=== PATIENT | female | born 1995 | race Caucasian/White ===

== ENCOUNTER 2019-02-20 11:55 | Emergency (ER) | payer SELFPAY ==
--- NOTE | 2019-02-20 14:26 | ULT ---
PELVIC ULTRASOUND: 02/20/19 COMPARISON: None. TECHNIQUE: Transabdominal and endovaginal imaging of the pelvis is performed. Ovaries are interrogated with callejas scale, color flow, Doppler imaging with spectral waveform analysis. HISTORY: patient. Activing bleeding. FINDINGS: The uterus is identified, measuring 12.4 x 6.3 x 7.4 cm. Complex echotexture in the endometrium at th e level of the uterine fundus. In the lower uterine segment, there is a gestational sac, yolk sac and pole. Mcnab-rump length is 0.52 cm, corresponding to a gestational age of 6 weeks, 2 days. The re are heart tones with a rate of 111 beats per minute. There does appear to be heterogeneous echotexture adjacent to the gestational sac compatible with a s ubchorionic hemorrhage. There is free fluid in the cul-de-sac. Left ovary is not appreciated. No obvious masses or fluid in the left adnexa. Right ovary has a normal echotexture measuring 3.2 x 3.4 x 3.6 cm. IMPRESSION: Gestational sac, yolk sac and pole in the lower uterine segment, compatible with active spontan eous . Follow-up ultrasound and serial beta HCGs are recommended. POS: [facility]
== END 2019-02-20 15:52 | disposition home or self-care (01) ==
LOC: ERS 11:55
DX: O20.0 Threatened abortion (principal); O99.411 Diseases of the circulatory system complicating pregnancy, first trimester; I34.1 Nonrheumatic mitral (valve) prolapse; O99.331 Smoking (tobacco) complicating pregnancy, first trimester; F17.210 Nicotine dependence, cigarettes, uncomplicated; O99.511 Diseases of the respiratory system complicating pregnancy, first trimester; J45.909 Unspecified asthma, uncomplicated; Z3A.01 Less than 8 weeks gestation of pregnancy
CPT/HCPCS: 76856

== ENCOUNTER 2019-02-21 11:06 | Emergency (ER) | payer SELFPAY ==
[2019-02-21 11:53] LABS: #Basophils 0.1 thou/uL (0.0-0.2); #Eosinphils 0.2 thou/uL (0.0-0.7); #Lymphocytes 2.2 thou/uL (1.20-3.40); #Monocytes 0.6 thou/uL (0.11-0.59); #Neutrophils 6.1 thou/uL (1.40-6.50); %Basophils 1.1 % (0.0-1.0); %Eosinophils 1.7 % (0.0-10.0); %Lymphocytes 24.1 % (21.0-51.0); %Monocytes 6.2 % (0.0-10.0); %Neutrophils 66.9 % (42.0-75.0); Hemoglobin 12.9 g/dL (12.0-16.0); Mean Corpuscular HGB CONC 34.7 g/dL (32.0-36.0); Mean Corpuscular Hemoglobin 29.8 pg (27.0-31.0); Mean Corpuscular Volume 85.9 fL (78.0-98.0); Platelet Count 274 thou/uL (130-400); RBC Distribution Width 11.3 % (11.5-14.5); Red Blood Cell (RBC) Count 4.34 mill/uL (4.20-5.40); White Blood Cell (WBC) Count 9.2 thou/uL (4.8-10.8)
--- NOTE | 2019-02-21 12:46 | ULT ---
US Pelvic Transvag W Doppler HISTORY: with bleeding. COMPARISON: 02/20/2019 study. FINDINGS: Real-time imaging of the pelvis was obtained both transabdominally as well as with an endov aginal probe. This shows a persistent intrauterine gestational sac and pole in the lower uterine segment. heart rate is 113 bpm. Heterogeneous material is seen within a very thickened endometrial cavity measuring 3 cm in thickness, this is most compatible with clot. The right and left adnexa appear unremarkable. Doppler evaluation with spectral analysis: Normal flow shown to the adnexa. IMPRESSION: Intrauterine gestational sac persists in the lower uterine segment with a heart rat e of 113 bpm. A large amount of clot is seen within the endometrial cavity.
== END 2019-02-21 12:56 | disposition home or self-care (01) ==
LOC: SCSER 11:06
DX: O20.0 Threatened abortion (principal); O99.511 Diseases of the respiratory system complicating pregnancy, first trimester; J45.909 Unspecified asthma, uncomplicated; O99.331 Smoking (tobacco) complicating pregnancy, first trimester; F17.210 Nicotine dependence, cigarettes, uncomplicated; O99.411 Diseases of the circulatory system complicating pregnancy, first trimester; I34.1 Nonrheumatic mitral (valve) prolapse; Z3A.01 Less than 8 weeks gestation of pregnancy
CPT/HCPCS: 36415; 76856; 84702; 85025; 86900; 86901

== ENCOUNTER 2019-02-23 12:42 | Emergency (ER) | payer SELFPAY ==
--- NOTE | 2019-02-23 14:30 | ULT ---
Exam: Pelvic ultrasound HISTORY: Evaluate for retained products of conception. Follow-up evaluation. COMPARISON: 02/21/2019 TECHNIQUE: Multiple grayscale and color Doppler images were obtained in a transabdominal and transvag inal pelvic ultrasound. Spectral analysis of the Doppler waveforms of the ovaries were performed. FINDINGS: CERVIX: Nabothian cyst formation is demonstrated. UTERUS: Again noted is a fluid collection within the lower uterine segment within the endometrial can al which again contains a pole. Cardiac Doppler does demonstrate heart tones with a heart rate of 116 bpm. The crown-rump length measures 0.75 cm which corresponds to gestational age by ultrasound of 6 weeks and 5 days. Within the endometrial canal proximal to the level of the gestational sac, there is thickening of the endometrium with persistent area of heterogeneity. The endometrium in this region measures 2.4 cm. Subjectively, this area does not appear significantly changed from the prior study; although, the end ometrial thickness on the prior study measured approximately 3 cm. This is again suggestive of blood products. Minimal free fluid is present. RIGHT OVARY: Normal flow, without focal mass. LEFT OVARY: Normal flow, without focal mass. IMPRESSION: Intrauterine gestation with heart tones documented is again located in the lower uterine segmen t. Proximal to this region in the endometrial canal, a large amount of heterogeneous material is again visualized likely related to hemorrhage not significantly changed from prior exam.
[2019-02-25 16:44] LABS: Chlamydia by PCR Not Detected (NotDetected); GC by PCR Not Detected (NotDetected)
== END 2019-02-23 15:08 | disposition home or self-care (01) ==
LOC: SCSER 12:42
DX: O20.0 Threatened abortion (principal); Z3A.01 Less than 8 weeks gestation of pregnancy
CPT/HCPCS: 36415; 76856; 84702; 87480; 87491; 87510; 87591; 87660

== ENCOUNTER 2019-03-04 20:18 | Observation (INO) | payer SELFPAY ==
[2019-03-04 21:43] LABS: #Basophils 0.1 thou/uL (0.0-0.2); #Eosinphils 0.2 thou/uL (0.0-0.7); #Lymphocytes 3.4 thou/uL (1.20-3.40); #Monocytes 0.6 thou/uL (0.11-0.59); #Neutrophils 6.5 thou/uL (1.40-6.50); %Basophils 0.7 % (0.0-1.0); %Eosinophils 2.3 % (0.0-10.0); %Lymphocytes 31.6 % (21.0-51.0); %Monocytes 5.2 % (0.0-10.0); %Neutrophils 60.2 % (42.0-75.0); Hemoglobin 13.2 g/dL (12.0-16.0); Mean Corpuscular HGB CONC 35.5 g/dL (32.0-36.0); Mean Corpuscular Volume 87.5 fL (78.0-98.0); Mean Platelet Volume 6.9 fL (7.4-10.4); Platelet Count 312 thou/uL (130-400); RBC Distribution Width 11.3 % (11.5-14.5); Red Blood Cell (RBC) Count 4.26 mill/uL (4.20-5.40); White Blood Cell (WBC) Count 10.7 thou/uL (4.8-10.8)
[2019-03-04 23:24] LABS: Bacteria/HPF 1+ HPF (None Seen); Bilirubin Negative (Negative); Blood, Urine 3+ (Negative); Clarity Clear (Clear); Glucose, Urine (Dipstick) Normal (Negative); Leukocyte Negative Leu/uL (Negative); Nitrite Negative (Negative); Protein, Urine (Dipstick) 20 mg/dL (Neg-Trace); RBC/HPF Greater than 50 HPF (0-3)
--- NOTE | 2019-03-04 23:49 | ULT ---
Exam: Pelvic ultrasound COMPARISON: 02/23/2019, 02/21/2019, 02/20/2019 TECHNIQUE: Endovaginal imaging of the pelvis is performed. Ovaries are interrogated with grayscale im aging. FINDINGS: Redemonstration of mixed echogenicity within the endometrium at the level of the uterine fundus. This collection measures 5.7 x 1.8 x 3.8 cm. In the lower uterine segment, there is evidence of a gestational sac, yolk sac and pole. Paton-rump length is 1.80 cm corresponding to gestational a ge of 8 weeks 2 days. There is interval growth. Previously, the gestational age was 6 weeks 3 days. heart tones are present, with a rate of 166 bpm. Left ovary is not appreciated. Right ovary has a normal echotexture measuring 1.8 x 5.3 x 2.3 cm IMPRESSION: Redemonstration of a that is at the level of the lower uterine segment. There has been inte rval growth. The patient has a history of section. The possibility of a ectopic at the level of the section scar is raised. [facility] consultation is recommended. Results of study discussed with Dr. Kay 03/04/2019 at 11:46 PM Code CR Transcribed Date/Time: 03/04/2019 11:51 PM
[2019-03-05] MEDS ORDERED: hydrALAZINE 20 MG/ML VIAL SLOW IVP PRN (07:43)
[2019-03-05] MEDS ORDERED: Ondansetron PF 4 MG/2 ML Vial IVP PRN (07:43)
[2019-03-05] MEDS ORDERED: Promethazine HCl 25 MG/ML VIAL IM PRN (07:43)
[2019-03-05] MEDS ORDERED: Lactated Ringer's 1,000 ML IV SCH (07:45)
[2019-03-05 08:17] LABS: Hemoglobin 12.5 g/dL (12.0-16.0); Mean Corpuscular HGB CONC 33.9 g/dL (32.0-36.0); Mean Corpuscular Hemoglobin 29.3 pg (27.0-31.0); Mean Corpuscular Volume 86.5 fL (78.0-98.0); Mean Platelet Volume 6.7 fL (7.4-10.4); Platelet Count 314 thou/uL (130-400); RBC Distribution Width 11.3 % (11.5-14.5); Red Blood Cell (RBC) Count 4.27 mill/uL (4.20-5.40); White Blood Cell (WBC) Count 9.7 thou/uL (4.8-10.8)
[2019-03-05 08:59] LABS: HBSAg Index 0.29 S/CO (0-0.99); HIV (1/2) Antibody/Antigen Non-Reactive (NonReactive); HIV 1/2 INDEX 0.09 S/CO (<1.00); Hep B Surf Ag Non-Reactive S/CO (NonReactive); Syphilis Antibody Nonreactive (Nonreactive); Syphilis Antibody Index 0.03 S/CO (<1.00 Non-Reactive)
[2019-03-05 09:45] VITALS: BMI 30.3
--- NOTE | 2019-03-05 13:59 | PDOC.EVN ---
Event Note - Event Note Event Note: Patient seen this AM at bedside. I reviewed with her the concerns (lower uterine with FHTs), due to her prior CS Hx x3. MRI has been done...awaiting results.
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
--- NOTE | 2019-03-05 15:04 | MRI ---
MRI PELVIS WITHOUT CONTRAST: Date: 03/05/19 COMPARISON: Pelvic ultrasound dated 03/04/19. HISTORY: Possible ectopic within scar. TECHNIQUE: Multiplanar, multisequence MR images were obtained of the pelvis without contrast. FINDINGS: A scar is seen in the subcutaneous fat in the lower abdominal wall. There is fluid within the endomet rial canal demonstrating high T1 and low T2 signal consistent with blood products. This signal is see n throughout the uterus, which is mildly enlarged. In the lower uterine segment, there is a well circ umscribed focus of high T2 signal measuring approximately 2.4 cm in greatest dimension. This contains an internal structure which may represent a pole. This is in the very lower uterine segment, b ut appears to be within the lower uterine segment rather the cervix. The cervix appears separate from this and measures 2.6 cm in length. This is in the posterior aspect of the uterus rather t [place] in the anterior aspect of the uterus and there is a small amount of fluid seen within the endomet rial canal also adjacent to this likely gestational sac and within the cervical canal. No pelvic adenopathy is seen. The ovaries are normal in size and appearance and demonstrate normal fo llicles. IMPRESSION: The patient appears to have a very low intrauterine , which is immediately adjacent to the c ervix, but not within the cervix. This is in the wall opposite of where the Caesarean secti on scar would be located. POS: [facility]
--- NOTE | 2019-03-05 16:29 | PDOC.EVN ---
Event Note - Event Note Event Note: OBGYN: Per radiology (phone call, Appelt): The gestational sac is in the CHANDLER (which sono found)...but it appears that implantation in the POST wall and NOT the anterior over the scar. He did not suspect scar ectopic. As the pateint has HX of VB...this may be an impending miscarriage over cervical ectopic as they are more rare. We will confirm RH type (rhogam if negative) and likely do expectant outpatient follow up
--- NOTE | 2019-03-05 17:15 | PDOC.EVN ---
Event Note - Event Note Event Note: @1715: Patient seen at bedside; Stable. No VB MRI discussed with her. See full dictation
[2019-03-05 17:28] VITALS: BP 99/50; TEMP 98.2
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
== END 2019-03-05 18:07 | disposition home or self-care (01) ==
LOC: ERS 20:18 → 3SW 03-05 07:55
PROVIDERS: ADMIT Obstetrics & Gynecology; ATTEND Obstetrics & Gynecology
DX: O20.0 Threatened abortion (principal); O99.511 Diseases of the respiratory system complicating pregnancy, first trimester; J45.909 Unspecified asthma, uncomplicated; O99.331 Smoking (tobacco) complicating pregnancy, first trimester; F17.210 Nicotine dependence, cigarettes, uncomplicated
CPT/HCPCS: 36415; 72195; 76856; 81003; 84702; 85025; 85027; 86762; 86780; 86850; 86900; 86901; 87340; 87389; 96360; 96361; G0378

== ENCOUNTER 2019-03-22 20:19 | Inpatient (IN) | payer SELFPAY ==
[2019-03-22 21:05] LABS: Bilirubin Negative (Negative); Blood, Urine Large (Negative); Clarity Hazy (Clear); Glucose, Urine (Dipstick) Negative (Negative); Leukocyte Trace (Negative); Nitrite Negative (Negative); Protein, Urine (Dipstick) Negative (Neg-Trace)
[2019-03-22 21:07] LABS: WBC/HPF 0-3 HPF (0-3)
[2019-03-22 21:08] LABS: Bacteria/HPF Rare-Few HPF (None Seen)
[2019-03-22] MEDS ORDERED: Acetaminophen 500 MG TAB ONE ×2 (21:09→23:51)
[2019-03-22 21:11] LABS: #Eosinphils 0.1 thou/uL (0.0-0.7); #Lymphocytes 1.1 thou/uL (1.20-3.40); #Monocytes 0.3 thou/uL (0.11-0.59); #Neutrophils 15.4 thou/uL (1.40-6.50); %Basophils 0.3 % (0.0-1.0); %Eosinophils 0.3 % (0.0-10.0); %Lymphocytes 6.3 % (21.0-51.0); %Monocytes 1.8 % (0.0-10.0); %Neutrophils 91.4 % (42.0-75.0); Hemoglobin 13.7 g/dL (12.0-16.0); Mean Corpuscular HGB CONC 35.2 g/dL (32.0-36.0); Mean Corpuscular Hemoglobin 30.3 pg (27.0-31.0); Mean Platelet Volume 6.2 fL (7.4-10.4); Platelet Count 232 thou/uL (130-400); RBC Distribution Width 11.3 % (11.5-14.5); Red Blood Cell (RBC) Count 4.53 mill/uL (4.20-5.40); White Blood Cell (WBC) Count 16.8 thou/uL (4.8-10.8)
[2019-03-22 21:19] LABS: ALT (SGPT) 16 U/L (8-55); AST (SGOT) 16 U/L (5-34); Albumin 4.1 g/dL (3.5-5.0); Alkaline Phosphatase 74 U/L (40-150); Anion Gap 14 mmol/L (10-20); BUN (Urea Nitrogen) 7 mg/dL (7.0-18.7); Bilirubin, Total 0.3 mg/dL (0.2-1.2); Calc. Creatinine Clearance 0 mL/min (70-130); Calcium 9.3 mg/dL (7.8-10.44); Carbon Dioxide 20 mmol/L (22-29); Chloride 103 mmol/L (98-107); Estimated GFR-MDRD Greater than 90; Globulin 3.1 g/dL (2.4-3.5); Glucose 112 mg/dL (70-105); Potassium 3.4 mmol/L (3.5-5.1); Protein, Total 7.2 g/dL (6.0-8.3); Sodium 134 mmol/L (136-145)
[2019-03-22] MEDS ORDERED: metroNIDAZOLE 500 MG/100 ML BAG ONE (21:30)
--- NOTE | 2019-03-22 23:38 | ULT ---
PELVIC ULTRASOUND: 03/22/19 Transabdominal ultrasound performed. INDICATIONS: Threatened . Sepsis. There is a gestational sac and pole identified. This gestational sac is abnormally located in t he lower uterine segment near the internal cervical os. The pole has crown-rump length indicati ng a 10 week, 5 day gestational age. No evidence of cardiac activity identified. Comparison made to the pelvis ultrasound dated 03/04/19. That exam also revealed a gestational sac in t he lower uterine segment; however, there were heart tones demonstrated at that time. IMPRESSION: Gestational sac containing a pole is abnormally located in the lower uterine segment near the i nternal os. There appears to be demise with no heart tones identified. POS: [facility]
[2019-03-22] MEDS ORDERED: Sodium Chloride 0.9% 1,000 ML IV SCH (23:45)
[2019-03-22] MEDS ORDERED: Morphine 4 MG/ML VIAL ONE (23:51)
[2019-03-22] MEDS ORDERED: cefTRIAXone\\ROCEPHIN 2 GM in Sodium Chloride 0.9% 100 ML IVPB SCH (23:59)
[2019-03-22] MEDS ORDERED: Morphine 4 MG/ML VIAL SLOW IVP SCH (23:59)
[2019-03-22] MEDS ORDERED: Acetaminophen 500 MG TAB PO SCH (23:59)
[2019-03-23 00:05] LABS: Bacteria/HPF None Seen HPF (None Seen); Bilirubin Negative (Negative); Blood, Urine 2+ (Negative); Clarity Clear (Clear); Glucose, Urine (Dipstick) Normal (Negative); Leukocyte 250 Leu/uL (Negative); Nitrite Negative (Negative); Protein, Urine (Dipstick) Negative (Neg-Trace); RBC/HPF 0-3 HPF (0-3); Squamous Epithelial 0-3 HPF (0-3); Urobilinogen Normal mg/dL (Less than 2)
[2019-03-23] MEDS ORDERED: Ibuprofen 800 MG TAB ONE (00:11)
[2019-03-23] MEDS ORDERED: cefTRIAXone\\ROCEPHIN 2 GM VIAL ONE (00:11)
[2019-03-23] MEDS ORDERED: Fentanyl 100 MCG/2 ML VIAL ONE ×3 (00:25→19:46)
[2019-03-23] MEDS ORDERED: Ondansetron PF 4 MG/2 ML Vial IVP PRN (00:27)
[2019-03-23] MEDS ORDERED: hydrALAZINE 20 MG/ML VIAL SLOW IVP PRN (00:27)
[2019-03-23] MEDS ORDERED: Misoprostol 200 MCG TAB PO SCH (00:30)
[2019-03-23] MEDS ORDERED: Lactated Ringer's 1,000 ML IV SCH ×3 (00:30→23:00)
[2019-03-23] MEDS ORDERED: Morphine 4 MG/ML VIAL SLOW IVP SCH (00:30)
[2019-03-23] MEDS ORDERED: Fentanyl 100 MCG/2 ML VIAL SLOW IVP SCH (00:45)
[2019-03-23 01:05] LABS: Lactic Acid 2.2 mmol/L (0.5-2.2)
[2019-03-23 01:08] LABS: Mean Corpuscular HGB CONC 34.9 g/dL (32.0-36.0); Mean Corpuscular Hemoglobin 30.3 pg (27.0-31.0); Mean Corpuscular Volume 86.8 fL (78.0-98.0); Mean Platelet Volume 6.8 fL (7.4-10.4); Platelet Count 209 thou/uL (130-400); RBC Distribution Width 11.4 % (11.5-14.5); White Blood Cell (WBC) Count 13.6 thou/uL (4.8-10.8)
[2019-03-23] MEDS: Butorphanol Tartrate 1 MG/ML VIAL SLOW IVP PRN ×4 (01:44→13:31)
--- NOTE | 2019-03-23 02:16 | HP ---
CHIEF COMPLAINT: Abdominal pain and not feeling well. HISTORY OF PRESENT ILLNESS: The patient is a 23-year-old G4, P3 female, well known to the emergency room with this who is re-presenting with overall malaise and chills. Upon arrival, the patient was noted to have a fever and elevated white count and was transferred from [facility] to us with concerns about threatened AB, endomyometritis. Upon arrival, the patient was noted to have a missed AB, confirmed by ultrasound with no evidence of heart beat. Fetus measuring about 10 weeks gestation. The patient reports she has been having abdominal pain today, midline and to the patient's left. She reports she continues to have bleeding over the last month and she has been bleeding about one pad a day. The patient states that she has a very strong desire to see this baby intact at time of delivery. PAST MEDICAL HISTORY: Asthma, mitral valve prolapse, heart murmur. 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 SOCIAL HISTORY: Reports a half pack per day of smoking. Denies drug or alcohol use. ALLERGIES: NO KNOWN DRUG ALLERGIES. MEDICATIONS: None. PHYSICAL EXAMINATION: VITAL SIGNS: Blood pressure one teens over 60s, pulse of 124, respiratory rate 16, temperature 102.2, saturating 99% on room air. GENERAL: She appears to be in some distress and uncomfortable. She is otherwise alert and oriented, cooperative and pleasant to interact with. HEENT: Head is normocephalic, atraumatic. LUNGS: Clear to auscultation bilaterally. HEART: Tachycardic with a regular rhythm. ABDOMEN: Soft with some rebound and tenderness, worse suprapubically into the patient's left. PELVIC: Cervix is having some increased bleeding of probably about 50 mL of blood, 25-50 mL of blood in the vault, dark. Cervix is exquisitely tender. LABORATORY DATA: Ultrasound confirms nonviable 10-week . White count is 13.6, hemoglobin is 13, hematocrit 37.4, platelets 209,000. Lactic acid 2.2. Sodium 134, potassium 3.4, chloride 103, BUN 7, creatinine 0.68, AST 16, ALT 16. ASSESSMENT AND PLAN: The patient is a 23-year-old female with what appears to be a missed AB with infection, with suspected endomyometritis at risk for sepsis. The patient has been counseled for D and C versus medically-induced passage of the fetus. The patient has expressed again very strong desires to want to see this baby with her eyes. I have discussed that this may delay her care and that if she were to continue to worsen, I would strongly recommend a D and C. The patient has expressed understanding and the plan at this time is to proceed with medical induction of labor for passage of this 10-week fetus at initial dose of 600 mcg and 400 mcg every 3 hours by mouth. The patient appears that she may be getting ready to go into labor on her own and hopefully will be delivering this tonight. The patient is being given a warning that should she show signs of worsening infection that we would be proceeding with D and C with priority to keep her safe as possible. We will continue antibiotics, Rocephin and Flagyl at this time. The patient will stay on Labor and Delivery. Job ID: [id number]
[2019-03-23] MEDS ORDERED: Meperidine HCl/PF 25 MG/ML VIAL ONE (03:11)
[2019-03-23] MEDS ORDERED: Promethazine HCl 25 MG/ML VIAL IM PRN ×3 (03:14→20:21)
[2019-03-23] MEDS: Misoprostol 200 MCG TAB PO SCH ×4 (05:45→22:56)
[2019-03-23] MEDS: metroNIDAZOLE 500 MG in Premix Bag 1 BAG IVPB SCH ×2 (06:44→22:57)
--- NOTE | 2019-03-23 08:54 | PDOC.EVN ---
Event Note - Event Note Event Note: PT having pain with contractions. PT has expressed she is considering a D&C vital signs stable 90s/50s p 90s sat 98-100% RA. RR20 temp 99.4 at rest in between contractions cervix ballooning with poc palpable in cervical canal a/p 10wk missed abortions with endomyometritis in rocephin and flagyl stable no evidence of worsening illness on cytotec 400mcg q3hrs until delivery anticipate delivery soon. Dr Oliveira is the on coming MD. PT counselled delivery appear soon. If she desires D&C to contact nurse Nel for pain control
[2019-03-23] MEDS ORDERED: Sodium Chloride 0.9% 1,000 ML IV SCH (09:00)
--- NOTE | 2019-03-23 09:32 | PDOC.EVN ---
Event Note - Event Note Event Note: Received check out from Dr. Dunham. !0 week demise now s/p 3rd dose of oral Cytotec, on Rocephin and Flagyl. Expect delivery this AM. Consent for D&C on chart.
[2019-03-23] MEDS ORDERED: PHENYLEPHRINE-NS 100 MCG/ML 10 ML SYRINGE ONE (14:08)
[2019-03-23] MEDS ORDERED: PROPOFOL 200 MG/20 ML VIAL ONE (14:08)
[2019-03-23] MEDS ORDERED: Lidocaine 1% PF 5 ML VIAL ONE (14:08)
[2019-03-23] MEDS ORDERED: Ondansetron PF 4 MG/2 ML Vial ONE (14:08)
[2019-03-23] MEDS ORDERED: Dexamethasone 20 MG/5 ML VIAL ONE (14:08)
[2019-03-23] MEDS ORDERED: Ketorolac Tromethamine 30 MG/ML VIAL ONE (14:08)
--- NOTE | 2019-03-23 15:07 | PDOC.EVN ---
Event Note - Event Note Event Note: SVE remains unchaged despite multiple dose of Cytotec. Xz=248.4. Prelim BC x 2 shows gram + cocci. Will DC Rocephin and start Amp/Gent and cont. Flagyl and preceed with D&C. Consent is on chart.
[2019-03-23] MEDS: Gentamicin Sulfate 340 MG in Sodium Chloride 0.9% 100 ML IVPB SCH (15:09)
[2019-03-23] MEDS ORDERED: Misoprostol 200 MCG TAB ONE (18:55)
[2019-03-23] MEDS ORDERED: Oxytocin 10 UNITS/ML VIAL ONE (18:55)
[2019-03-23] MEDS ORDERED: Midazolam HCl 2 mg/2 ml Vial ONE (19:46)
[2019-03-23] MEDS ORDERED: Promethazine HCl 25 MG/ML VIAL SLOW IVP PRN ×2 (20:20→20:21)
[2019-03-23] MEDS ORDERED: PACU-Morphine 4MG/ML VIAL SLOW IVP PRN (20:20)
[2019-03-23] MEDS ORDERED: HYDROmorphone 2 MG/ML VIAL SLOW IVP PRN (20:20)
[2019-03-23] MEDS ORDERED: Ondansetron HCl/PF 4 MG/2 ML Vial IVP PRN ×2 (20:20→20:21)
[2019-03-23] MEDS ORDERED: Meperidine HCl/PF 25 MG/ML VIAL SLOW IVP PRN (20:21)
[2019-03-23] MEDS ORDERED: Acetaminophen/Codeine 30-300mg Tablet PO PRN (21:39)
[2019-03-23 21:51] LABS: #Lymphocytes 0.5 thou/uL (1.20-3.40); #Monocytes 0.2 thou/uL (0.11-0.59); #Neutrophils 9.8 thou/uL (1.40-6.50); %Basophils 0.3 % (0.0-1.0); %Eosinophils 0.3 % (0.0-10.0); %Lymphocytes 4.8 % (21.0-51.0); %Monocytes 2.2 % (0.0-10.0); %Neutrophils 92.5 % (42.0-75.0); Hemoglobin 8.7 g/dL (12.0-16.0); Mean Corpuscular HGB CONC 35.3 g/dL (32.0-36.0); Mean Corpuscular Hemoglobin 30.8 pg (27.0-31.0); Mean Corpuscular Volume 87.2 fL (78.0-98.0); Platelet Count 151 thou/uL (130-400); RBC Distribution Width 11.3 % (11.5-14.5); Red Blood Cell (RBC) Count 2.81 mill/uL (4.20-5.40); White Blood Cell (WBC) Count 10.6 thou/uL (4.8-10.8)
[2019-03-23] MEDS: Clindamycin/D5W 900 MG in Premix Bag 1 BAG IVPB SCH (23:16)
[2019-03-23] MEDS: Acetaminophen/Codeine 30-300mg Tablet PO PRN (23:17)
[2019-03-23] MEDS: Ampicillin 2 GM in Sodium Chloride 0.9% 100 ML IVPB SCH (23:17)
[2019-03-24] MEDS ORDERED: Lactated Ringer's 1,000 ML IV SCH (00:15)
--- NOTE | 2019-03-24 00:22 | PDOC.EVN ---
Event Note - Event Note Event Note: Reassessed patient. Blood pressure has slightly improved with 1.5 L bolus. Map of 67. Patient sitting up in bed and eating pudding. Denies weakness/dizziness in bed but noted these symptoms when got up to bathroom. Denies N/V. Patient is pale in appearance. Minimal blood in pad. Ordered another 1 L bolus to follow to ensure 30cc/kg fluid resuscitation. Only IV access through R thumb and patient was reportedly a hard stick. May consider midline vs central line if current IV access not sufficient. Will continue to monitor frequent BP checks to ensure improvement. If does not respond appropriately to adequate fluid resuscitation will need to consider pressors. Continue IV antibiotics. Pending am CBC and final blood culture results. Addendum - Attending - Attending Attestation Date/Time: 03/24/19 8255 I personally evaluated the patient and discussed the management with Dr. Vasquez. I agree with the Assessment and Plan documented above.
--- NOTE | 2019-03-24 02:38 | PDOC.EVN ---
Event Note - Event Note Event Note: BPs remain low despite fluid boluses to 3 liters. Remains on triple ABX coverage. Will consult [facility] for evalution and consideration of pressor agent. To CCU for central line and evaluation there.
--- NOTE | 2019-03-24 02:46 | OP ---
DATE OF PROCEDURE: 03/23/2019 PREOPERATIVE DIAGNOSES: 1. Incomplete . 2. Sepsis. POSTOPERATIVE DIAGNOSES: 1. Incomplete . 2. Sepsis. PROCEDURE PERFORMED: Suction curettage of the uterus. ANESTHESIA: IV sedation with LMA. FINDINGS: 1. Cervix widely opened with products extruding. 2. Large amount of products of conception along with fetus removed with ring forceps and suction curettage. COMPLICATIONS: None. ESTIMATED BLOOD LOSS: 100 mL. TECHNIQUE IN DETAIL: The patient was taken to the operating room after informed consent was obtained and was put to sleep using IV sedation with LMA. The patient was prepped and draped in the usual sterile fashion in the dorsal lithotomy position using the [employer]-cane stirrups. The bladder was drained of small amount of clear urine. Bimanual exam showed the uterus to be approximately 10 weeks in size. Upon placement of the weighted speculum, it could be seen that there was tissue extending from the cervix. The anterior aspect was grasped with a ring forceps and a second ring forcep was used to remove tissue that included placental type tissue, as well as tissue. This was submitted for pathological analysis. The suction curette was then placed in the uterine cavity and a large amount of tissue was obtained. A sharp curette was then passed through all quadrants of the uterus and no remaining placental fragments were obtained. Pitocin infusion was begun after suction curettage was begun. At the end of the procedure, the sponge and instrument counts were correct. The patient tolerated the procedure well and was taken to recovery room in good condition. Job ID: [id number]
[2019-03-24 03:01] LABS: #Lymphocytes 0.4 thou/uL (1.20-3.40); #Monocytes 0.1 thou/uL (0.11-0.59); #Neutrophils 8.8 thou/uL (1.40-6.50); %Basophils 0.1 % (0.0-1.0); %Eosinophils 0.1 % (0.0-10.0); %Lymphocytes 4.7 % (21.0-51.0); %Monocytes 1.2 % (0.0-10.0); Hemoglobin 8.3 g/dL (12.0-16.0); Mean Corpuscular HGB CONC 35.9 g/dL (32.0-36.0); Mean Corpuscular Hemoglobin 31.4 pg (27.0-31.0); Mean Corpuscular Volume 87.5 fL (78.0-98.0); Mean Platelet Volume 7.3 fL (7.4-10.4); Platelet Count 142 thou/uL (130-400); RBC Distribution Width 11.3 % (11.5-14.5); Red Blood Cell (RBC) Count 2.63 mill/uL (4.20-5.40); White Blood Cell (WBC) Count 9.4 thou/uL (4.8-10.8)
[2019-03-24 03:08] LABS: INR-International Normal Ratio 1.3; PTT 37.8 SEC (22.9-36.1); Prothrombin Time 16.1 SEC (12.0-14.7)
[2019-03-24 03:18] LABS: Lactic Acid 1.3 mmol/L (0.5-2.2)
[2019-03-24 03:24] LABS: ALT (SGPT) 9 U/L (8-55); AST (SGOT) 14 U/L (5-34); Albumin 2.7 g/dL (3.5-5.0); Alkaline Phosphatase 48 U/L (40-150); Anion Gap 11 mmol/L (10-20); BUN (Urea Nitrogen) 8 mg/dL (7.0-18.7); Bilirubin, Total 0.3 mg/dL (0.2-1.2); Calc. Creatinine Clearance 184 mL/min (70-130); Calcium 8.1 mg/dL (7.8-10.44); Carbon Dioxide 18 mmol/L (22-29); Chloride 108 mmol/L (98-107); Estimated GFR-MDRD Greater than 90; Globulin 2.2 g/dL (2.4-3.5); Glucose 197 mg/dL (70-105); Magnesium 1.4 mg/dL (1.6-2.6); Potassium 3.7 mmol/L (3.5-5.1); Protein, Total 4.9 g/dL (6.0-8.3); Sodium 133 mmol/L (136-145)
[2019-03-24 04:14] VITALS: BMI 32.3
[2019-03-24] MEDS ORDERED: Magnesium 2 GM/50 ML 2 GM in Premix Bag 1 BAG IVPB SCH (04:15)
--- NOTE | 2019-03-24 04:49 | PDOC.HOSPP ---
- Subjective Subjective: Patient seen and examined for Septic shock. Admitted 03/23 for missed with possible endometritis. Blood cultures 2/2 positive for GP rods. Feels gen weak. Overall feels somewhat better since admission. No N/V/D/rash . No other complaints. - Objective Vital Signs & Weight: Vital Signs (12 hours) Temp Pulse Resp BP Pulse Ox 03/24/19 02:31 81/42 L 03/24/19 02:02 78/42 L 03/24/19 01:48 76 85/49 L 98 03/24/19 00:42 80/44 L 03/24/19 00:04 87/52 L 03/23/19 23:42 78 88/48 L 98 03/23/19 23:18 88/53 L 03/23/19 22:40 98.8 F 86 18 85/43 L 96 Weight Weight 194 lb 0.108 oz Result Diagrams: 03/24/19 02:55 03/24/19 02:55 Additional Labs: Laboratory Tests 03/24/19 03/24/19 03/24/19 02:55 02:55 02:55 PT INR APTT Lactic Acid 1.3 Magnesium 1.4 L Cortisol 1.90 03/24/19 02:55 PT 16.1 H INR 1.3 APTT 37.8 H Lactic Acid Magnesium Cortisol Microbiology 03/22/19 21:26 Cervix Gram Stain - Final 03/22/19 21:26 Cervix Genital Culture - Preliminary 03/22/19 21:00 Venous blood - Right Arm Blood Culture - Preliminary Gram Positive Daquan 03/22/19 20:55 Venous blood - Left Arm Blood Culture - Preliminary Gram Positive Daquan 03/22/19 20:55 Urine voided Urine Culture - Preliminary NO GROWTH AT 12 HOURS EKG Reviewed by me: Yes (Tele SR) ROS - Review of Systems All systems: All other ROS were reviewed and found negative. - Medication Medications: Active Medications Generic Name Dose Route Start Last Admin Trade Name Freq PRN Reason Stop Dose Admin Gentamicin Sulfate 340 mg/ 108.5 mls @ 108.5 mls/hr 03/23/19 15:00 03/23/19 15:09 Sodium Chloride IVPB 108.5 mls Q24HR ANASTACIA Administration Ampicillin Sodium 2 gm/ Sodium 100 mls @ 200 mls/hr 03/23/19 23:59 03/23/19 23:17 Chloride IVPB 100 mls Q6HR ANASTACIA Administration Clindamycin Phosphate/Dextrose 50 mls @ 100 mls/hr 03/23/19 22:00 03/23/19 23 :16 900 mg/ Device IVPB 50 mls Q8HR ANASTACIA Administration Promethazine HCl 12.5 mg 03/23/19 03:14 03/23/19 03:29 Phenergan IM 12.5 mg Q2H PRN Administration Nausea/Vomiting - Exam NAD Heart: RRR, no gallops, no rubs, normal peripheral pulses (low volume) Respiratory: CTAB, no wheezes, no rales, no ronchi Gastrointestinal: soft, non-distended, normal bowel sounds (mild gen tend) Extremities: no cyanosis, no clubbing, no edema Skin: normal turgor, no rashes Psychiatric: A&O x 3 Hosp A/P (1) Septic shock due to Gram positive bacteria Code(s): A41.89 - OTHER SPECIFIED SEPSIS; R65.21 - SEVERE SEPSIS WITH SEPTIC SHOCK Status: Acute (2) Bacteremia due to Gram-positive bacteria Code(s): R78.81 - BACTEREMIA Status: Acute (3) Hypotension Status: Acute (4) Hypomagnesemia Code(s): E83.42 - HYPOMAGNESEMIA Status: Acute (5) Coagulopathy Status: Acute - Plan plan discussed w/ family, DVT proph w/SCDs Cont Ampicillin/Gent/Clindamycin Increase LR to 150 ml/hr Central line Pressors PRN Check D-dimer and Fibrinogen AM labs Replace Magnessium Stress dose steroids if persistent hypotension. Thank you for this consultation. Will follow.
[2019-03-24] MEDS ORDERED: SYSTANE 3.5 GM TUBE EA EYE PRN (04:56)
[2019-03-24] MEDS ORDERED: Norepinephrine 8 MG/0.9% NS 250 ML IVPB PRN (04:56)
[2019-03-24] MEDS ORDERED: Norepinephrine 8 MG in Dextrose 5% in Water 242 ML IVPB PRN (04:59)
[2019-03-24] MEDS ORDERED: Acetaminophen 325 MG TAB PO PRN (05:00)
[2019-03-24] MEDS ORDERED: Bisacodyl 10 MG SUPP PR PRN (05:00)
[2019-03-24] MEDS ORDERED: Senokot S 8.6-50 MG TAB PO PRN (05:00)
[2019-03-24] MEDS: Lactated Ringer's 1,000 ML IV SCH ×3 (05:07→19:23)
[2019-03-24] MEDS: Clindamycin/D5W 900 MG in Premix Bag 1 BAG IVPB SCH ×3 (06:08→21:55)
[2019-03-24] MEDS: Ampicillin 2 GM in Sodium Chloride 0.9% 100 ML IVPB SCH ×3 (06:08→18:00)
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
[2019-03-24 09:40] LABS: D-Dimer Test 2.05 *mcg/mL (0.27-0.43)
[2019-03-24] MEDS: Saccharomyces boulardii 250 MG CAP PO SCH (09:52)
[2019-03-24] MEDS: Famotidine 20 MG TAB PO SCH ×2 (09:52→21:55)
--- NOTE | 2019-03-24 11:13 | PDOC.EVN ---
Event Note - Event Note Event Note: Pt now stable from CCU and IM standpoint. Exam appropriate for POD1 Mild hypotension, however, other vitals stable and not requiring pressers. Transfer to gatekeeper floor, continue Amp/gent/clinda. Blood cultures with gram + rods, ID and sensitivity pending.
[2019-03-24] MEDS: Hydrocortisone Sod Succ/PF 100 mg/2 ml Vial IVP SCH ×2 (12:24→18:00)
[2019-03-24] MEDS: Gentamicin Sulfate 340 MG in Sodium Chloride 0.9% 100 ML IVPB SCH (14:18)
[2019-03-24] MEDS: Acetaminophen/Codeine 30-300mg Tablet PO PRN (16:38)
[2019-03-24] MEDS ORDERED: Nicotine 7 MG PATCH TOP PRN (23:00)
[2019-03-25] MEDS: Hydrocortisone Sod Succ/PF 100 mg/2 ml Vial IVP SCH ×4 (00:11→17:42)
[2019-03-25] MEDS: Lactated Ringer's 1,000 ML IV SCH (00:16)
[2019-03-25] MEDS: Ampicillin 2 GM in Sodium Chloride 0.9% 100 ML IVPB SCH ×4 (00:25→17:44)
[2019-03-25 05:58] LABS: #Lymphocytes 1.1 thou/uL (1.20-3.40); #Monocytes 0.7 thou/uL (0.11-0.59); #Neutrophils 10.9 thou/uL (1.40-6.50); %Basophils 0.1 % (0.0-1.0); %Eosinophils 0.1 % (0.0-10.0); %Lymphocytes 8.8 % (21.0-51.0); %Monocytes 5.2 % (0.0-10.0); %Neutrophils 85.8 % (42.0-75.0); Hemoglobin 8.1 g/dL (12.0-16.0); Mean Corpuscular HGB CONC 35.6 g/dL (32.0-36.0); Mean Corpuscular Hemoglobin 31.1 pg (27.0-31.0); Mean Corpuscular Volume 87.2 fL (78.0-98.0); Mean Platelet Volume 7.5 fL (7.4-10.4); Platelet Count 204 thou/uL (130-400); RBC Distribution Width 11.3 % (11.5-14.5); Red Blood Cell (RBC) Count 2.61 mill/uL (4.20-5.40); White Blood Cell (WBC) Count 12.6 thou/uL (4.8-10.8)
--- NOTE | 2019-03-25 06:01 | PDOC.EVN ---
Event Note - Event Note Event Note: @0600 Room 302 POD 2: s/p D&C septic AB...Amp/Gent/Clinda patient back from ICU, doing well S. Feels better, eating well. States both legs slightly swollen from the IVFs and lulu moving. O. BPs 110s/50s..afebrile. LABS: Blood culture with CLOSTRIDIUM (not perfringes) HCT 39 to 22/8 EXAM: NAD...A&O, eating No VB Lower extremities: no cords, no evidence erythema. A/P: POD 2 from septic AB on triple ABX (A/G/C)...Clostridium (final ID pending) : 1. continue ABX until 72 hours due to concern for initial sepsis....72 hours will be tomorrow PM 2. Await lab/micro final 3. suspicion for leg DVT low at this time...I suspect discomfort is lower extremity edema (mild) from the IVFs and lack of ambulation 4. Follow clinically
[2019-03-25 06:20] LABS: D-Dimer Test 1.96 *mcg/mL (0.27-0.43); INR-International Normal Ratio 1.1; Prothrombin Time 14.4 SEC (12.0-14.7)
[2019-03-25 06:22] LABS: ALT (SGPT) 11 U/L (8-55); AST (SGOT) 12 U/L (5-34); Albumin 3.3 g/dL (3.5-5.0); Alkaline Phosphatase 53 U/L (40-150); Anion Gap 12 mmol/L (10-20); BUN (Urea Nitrogen) 7 mg/dL (7.0-18.7); Bilirubin, Total 0.2 mg/dL (0.2-1.2); Calc. Creatinine Clearance 201 mL/min (70-130); Calcium 9.1 mg/dL (7.8-10.44); Carbon Dioxide 22 mmol/L (22-29); Chloride 109 mmol/L (98-107); Estimated GFR-MDRD Greater than 90; Globulin 2.4 g/dL (2.4-3.5); Glucose 135 mg/dL (70-105); Magnesium 1.8 mg/dL (1.6-2.6); Potassium 3.8 mmol/L (3.5-5.1); Protein, Total 5.7 g/dL (6.0-8.3); Sodium 139 mmol/L (136-145)
[2019-03-25] MEDS: Ibuprofen 800 MG TAB PO PRN ×2 (06:26→19:38)
[2019-03-25] MEDS: Clindamycin/D5W 900 MG in Premix Bag 1 BAG IVPB SCH ×3 (06:26→21:42)
[2019-03-25] MEDS: Famotidine 20 MG TAB PO SCH ×2 (12:16→21:42)
[2019-03-25] MEDS: Saccharomyces boulardii 250 MG CAP PO SCH (12:16)
[2019-03-25] MEDS: Gentamicin Sulfate 340 MG in Sodium Chloride 0.9% 100 ML IVPB SCH (15:15)
--- NOTE | 2019-03-25 21:04 | PDOC.EVN ---
Event Note - Event Note Event Note: Pt seen for followup. Denies any complaints. Blood pressure has improved, pt is receiving antibiotics. Phys exam: stable. Will signoff at this time, please contact hospitalist service if any further needs arise.
[2019-03-26] MEDS: Ampicillin 2 GM in Sodium Chloride 0.9% 100 ML IVPB SCH ×4 (00:19→18:28)
[2019-03-26] MEDS: Hydrocortisone Sod Succ/PF 100 mg/2 ml Vial IVP SCH ×5 (00:19→23:47)
[2019-03-26] MEDS: Ibuprofen 800 MG TAB PO PRN ×2 (05:43→20:02)
[2019-03-26] MEDS: Clindamycin/D5W 900 MG in Premix Bag 1 BAG IVPB SCH ×2 (06:20→14:50)
--- NOTE | 2019-03-26 06:45 | PRG ---
DATE OF SERVICE: 03/26/2019 TIME OF SERVICE: 0610. The patient is hospital day of ampicillin day #3 to 4 and clindamycin day #3 to 4. SUBJECTIVE: The patient is resting comfortably. She has no complaints. OBJECTIVE: VITAL SIGNS: Temperature 99, pulse is 50, respirations 20, blood pressure 107/71, T-max 98.9 last 24 hours. LUNGS: Clear to auscultation bilaterally. HEART: Regular rate and rhythm. ABDOMEN: Soft and nontender without rebound or guarding. : She has scant vaginal discharge. EXTREMITIES: Without clubbing, cyanosis, or edema. LABORATORY DATA: The patient's white count on the was 12.6 with hematocrit of 22.8. This was stable. Platelets were stable. Gentamicin peak on 03/25 was high at 12.2. Microbiology; the patient's blood cultures x2 grew Clostridium perfringens. IMPRESSION: The patient is status post septic A and B with positive Clostridium blood cultures. The patient has clinically responded and cleared and been afebrile for more than 48 hours. Gentamicin peak is elevated on 03/25. PLAN: 1. Gentamicin discontinued on 03/25. 2. Continue ampicillin and clindamycin since these could be considered synergistic for clostridial infections through 1700-hour dose this p.m. 3. We will discontinue antibiotics at 1700 hours and observe patient overnight. 4. If the patient remains afebrile and asymptomatic, would consider discharge home on 03/27. This follows treatment plan as laid out by Dr. Saavedra on 03/25, and will be discussed with Dr. Nelson Dunham, OB hospitalist, coming on at 0800 on 03/26. Job ID: [id number]
[2019-03-26] MEDS: Famotidine 20 MG TAB PO SCH ×2 (07:46→21:35)
[2019-03-26] MEDS: Acetaminophen/Codeine 30-300mg Tablet PO PRN (07:46)
[2019-03-26] MEDS: Saccharomyces boulardii 250 MG CAP PO SCH (09:47)
[2019-03-26] MEDS ORDERED: Calcium Carbonate 500 MG ChewTAB PO SCH (21:00)
[2019-03-26] MEDS: Clindamycin 150 MG CAP PO SCH (21:35)
[2019-03-26] MEDS: Amoxicillin/Potassium Clav 500 MG TAB PO SCH (21:35)
[2019-03-27] MEDS: Hydrocortisone Sod Succ/PF 100 mg/2 ml Vial IVP SCH (06:05)
[2019-03-27] MEDS: Clindamycin 150 MG CAP PO SCH (06:05)
[2019-03-27 08:14] LABS: #Lymphocytes 2.1 thou/uL (1.20-3.40); #Monocytes 0.6 thou/uL (0.11-0.59); #Neutrophils 7.9 thou/uL (1.40-6.50); %Basophils 0.1 % (0.0-1.0); %Eosinophils 0.3 % (0.0-10.0); %Lymphocytes 19.7 % (21.0-51.0); %Monocytes 5.4 % (0.0-10.0); %Neutrophils 74.5 % (42.0-75.0); Hemoglobin 8.8 g/dL (12.0-16.0); Mean Corpuscular HGB CONC 34.3 g/dL (32.0-36.0); Mean Corpuscular Hemoglobin 30.4 pg (27.0-31.0); Mean Corpuscular Volume 88.5 fL (78.0-98.0); Platelet Count 259 thou/uL (130-400); RBC Distribution Width 11.3 % (11.5-14.5); Red Blood Cell (RBC) Count 2.91 mill/uL (4.20-5.40); White Blood Cell (WBC) Count 10.6 thou/uL (4.8-10.8)
--- NOTE | 2019-03-27 08:15 | PDOC.EVN ---
Event Note - Event Note Event Note: Lab Check: This AM CBC is normal...ok for discharge home. Patient seen by my partner this AM...and OK for release.
[2019-03-27] MEDS: Amoxicillin/Potassium Clav 500 MG TAB PO SCH (09:15)
[2019-03-27] MEDS: Saccharomyces boulardii 250 MG CAP PO SCH (09:15)
[2019-03-27] MEDS: Famotidine 20 MG TAB PO SCH (09:15)
--- NOTE | 2019-03-27 10:48 | DIS ---
DATE OF ADMISSION: 03/23/2019 DATE OF DISCHARGE: 03/27/2019 ADMISSION DIAGNOSES: Missed with endomyometritis, high risk for sepsis. DISCHARGE DIAGNOSES: Completed , sepsis with bacteremia positive for Clostridium non-perfringens. PROCEDURES PERFORMED: Dilation and curettage and intensive care unit stay. CONSULTATIONS: Hospitalist and eco industrial development consultant. HOSPITAL COURSE: The patient is a 23-year-old female, who re-presented to the emergency room for overall not feeling well, fevers and chills, and abdominal pain. The patient at that time was noted to have a missed AB at 10 weeks, febrile, and tachycardic. Recommendation made for D&C with the option of medical management given the patient's intense desire to see the fetus for closure. The caveat was that should she show any signs of worsening infection, we would proceed with D and C. The patient was admitted to the hospital for Cytotec induction. Over the course of her stay, the patient progressed and then was unable to complete her miscarriage with the products of conception in a balloon cervix resulting in necessity for D and C. The patient was taken to the operating room for D and C. For complete details, please refer to the operative note. The patient was taken to ICU for hypotension 80s/40s, where she was given steroids and fluid hydration. Her antibiotics were continued, ampicillin, gentamicin, and clindamycin, which were changed from Rocephin and Flagyl shortly after admission. The following day on postoperative day 1, hospital day 3, the patient was transferred back from the ICU to the hospital floor for continued care, where she continued on her antibiotics. She has been on antibiotic for a total of 6 days. She has been afebrile now since hospital day 2, making her afebrile now for 4 days. I have spoken with the hospitalist group, who recommended that she be on a total of 14 days of antibiotics. I will be discharging her home with Augmentin and clindamycin. The patient has been counseled to seek medical attention should she experience returning fever, increasing pain, voluminous diarrhea, or other concerns. She is to follow up with [facility] [place] in about 10 days. We do have a CBC pending today just to confirm that her white count is trending down as her last CBC 2 days ago was up from her what appeared to be her new baseline with a continued left shift. Clinically, the patient has continued to show marked improvement. The oncoming physician, Dr. Saavedra will be able to review that and make final disposition. As for now, we will be planning on discharging the patient. Job ID: [id number] MTDD
[2019-03-27 11:33] VITALS: BP 105/68; TEMP 98.1
== END 2019-03-27 13:00 | disposition home or self-care (01) | DRG 770 ==
LOC: SCSER 20:19 → EEVIPCON 03-23 01:41 → L&D 03-23 01:41 → OBSVTOIN 03-23 01:41 → L&D-LIB 03-23 16:33 → 3SE 03-23 22:28 → CCU 03-24 03:40 → 3SE 03-24 21:28
PROVIDERS: ADMIT Obstetrics & Gynecology; ATTEND Obstetrics & Gynecology
PROC: 10D17ZZ Extraction of Products of Conception, Retained, Via Natural or Artificial Opening (ICD-10-PCS; principal; 2019-03-23)
PROC: 3E033VJ Introduction of Other Hormone into Peripheral Vein, Percutaneous Approach (ICD-10-PCS; 2019-03-23)
DX: O03.39 Incomplete spontaneous abortion with other complications (principal); A41.89 Other specified sepsis; R65.21 Severe sepsis with septic shock; O03.37 Sepsis following incomplete spontaneous abortion; J45.909 Unspecified asthma, uncomplicated; F17.210 Nicotine dependence, cigarettes, uncomplicated; E83.42 Hypomagnesemia; I95.9 Hypotension, unspecified
CPT/HCPCS: 36415; 76856; 80053; 80170; 81003; 81015; 82533; 83605; 83735; 84702; 85025; 85027; 85379; 85384; 85610; 85730; 86850; 86900; 86901; 87040; 87070; 87076; 87086; 88305; 93005; J0290; J0595; J0696; J1100; J1580; J1720; J1885; J2001; J2175; J2250; J2270; J2405; J2550; J2590; J2704; J3010; J3475; J3490; P9045

== ENCOUNTER 2019-04-07 13:33 | Emergency (ER) | payer SELFPAY ==
[2019-04-07 14:29] LABS: #Basophils 0.1 thou/uL (0.0-0.2); #Eosinphils 0.1 thou/uL (0.0-0.7); #Lymphocytes 3.1 thou/uL (1.20-3.40); #Monocytes 0.6 thou/uL (0.11-0.59); #Neutrophils 5.4 thou/uL (1.40-6.50); %Basophils 0.9 % (0.0-1.0); %Eosinophils 1.1 % (0.0-10.0); %Lymphocytes 33.2 % (21.0-51.0); %Monocytes 6.1 % (0.0-10.0); %Neutrophils 58.8 % (42.0-75.0); Hemoglobin 11.1 g/dL (12.0-16.0); Mean Corpuscular HGB CONC 34.3 g/dL (32.0-36.0); Mean Corpuscular Hemoglobin 29.6 pg (27.0-31.0); Mean Corpuscular Volume 86.2 fL (78.0-98.0); Mean Platelet Volume 6.2 fL (7.4-10.4); Platelet Count 428 thou/uL (130-400); RBC Distribution Width 11.6 % (11.5-14.5); Red Blood Cell (RBC) Count 3.74 mill/uL (4.20-5.40); White Blood Cell (WBC) Count 9.2 thou/uL (4.8-10.8)
[2019-04-07 14:52] LABS: ALT (SGPT) 15 U/L (8-55); AST (SGOT) 16 U/L (5-34); Albumin 4.3 g/dL (3.5-5.0); Alkaline Phosphatase 91 U/L (40-150); Anion Gap 14 mmol/L (10-20); BUN (Urea Nitrogen) 9 mg/dL (7.0-18.7); Bilirubin, Total 0.4 mg/dL (0.2-1.2); Calc. Creatinine Clearance 0 mL/min (70-130); Calcium 9.8 mg/dL (7.8-10.44); Carbon Dioxide 21 mmol/L (22-29); Chloride 106 mmol/L (98-107); Estimated GFR-MDRD Greater than 90; Globulin 3.1 g/dL (2.4-3.5); Glucose 93 mg/dL (70-105); Protein, Total 7.4 g/dL (6.0-8.3); Sodium 137 mmol/L (136-145)
[2019-04-07 15:19] LABS: Bacteria/HPF None Seen HPF (None Seen); Bilirubin Negative (Negative); Blood, Urine 1+ (Negative); Clarity Clear (Clear); Glucose, Urine (Dipstick) Normal (Negative); Leukocyte Negative Leu/uL (Negative); Mucous/LPF Rare LPF (<2+); Nitrite Negative (Negative); Protein, Urine (Dipstick) Negative (Neg-Trace); Squamous Epithelial 0-3 HPF (0-3); Urobilinogen Normal mg/dL (Less than 2); WBC/HPF 0-3 HPF (0-3)
== END 2019-04-07 18:28 | disposition home or self-care (01) ==
LOC: ERS 13:33
DX: O20.9 Hemorrhage in early pregnancy, unspecified (principal); O99.511 Diseases of the respiratory system complicating pregnancy, first trimester; J06.9 Acute upper respiratory infection, unspecified; O99.331 Smoking (tobacco) complicating pregnancy, first trimester; F17.210 Nicotine dependence, cigarettes, uncomplicated; Z3A.11 11 weeks gestation of pregnancy
CPT/HCPCS: 36415; 80053; 81003; 81015; 85025; 99284

== ENCOUNTER 2019-05-17 07:38 | Emergency (ER) | payer SELFPAY ==
[2019-05-17] MEDS ORDERED: Bupivacaine 0.5% 10 ML VIAL ONE (08:14)
== END 2019-05-17 08:45 | disposition home or self-care (01) ==
LOC: ERS 07:38
DX: K03.2 Erosion of teeth (principal); F17.210 Nicotine dependence, cigarettes, uncomplicated
CPT/HCPCS: 64400; J3490